=== PATIENT | female | born 1960 | race Caucasian/White ===

== ENCOUNTER → 2016-11-04 | Outpatient (CLI) | payer BC ==
--- NOTE | 2016-11-04 12:30 | RADRPT ---
PROCEDURE: XR Right hip and pelvis. CLINICAL INDICATION: Right hip pain and pelvic pain. TECHNIQUE: 3 views. Frontal pelvis. Frontal and lateral right hip. COMPARISON: None. FINDINGS: There is no fracture or dislocation. The soft tissues are normal. Articular surfaces are intact. There is no lytic or blastic lesion. There is no radiopaque foreign body. IMPRESSION: 1. Unremarkable images of the right hip. 2. Unremarkable frontal view of the pelvis. RPTAT: QQ .Pool Collins MD, Date Time Electronically viewed and signed by .Pool Collins MD, on 11/04/2016 12:30 .R/
== END | disposition home or self-care (01) ==
LOC: HKI 10:41
PROVIDERS: ATTEND Orthopaedic Surgery
DX: M70.61 Trochanteric bursitis, right hip (principal); M25.551 Pain in right hip
CPT/HCPCS: 20610; 73502; G0463; J1030

== ENCOUNTER → 2017-02-24 | Outpatient (CLI) | payer BC ==
--- NOTE | 2017-02-24 17:42 | RADRPT ---
PROCEDURE: XR Left hip and pelvis. CLINICAL INDICATION: Left hip pain and pelvic pain. TECHNIQUE: 3 views. Frontal pelvis. Frontal and lateral left hip. COMPARISON: 11/04/2016. FINDINGS: There is no fracture or dislocation. The soft tissues are normal. Articular surfaces are intact. There is no lytic or blastic lesion. The upper pelvis is not completely included on the images. IMPRESSION: 1. Unremarkable images of the left hip. 2. Unremarkable frontal view of the pelvis. RPTAT: QQ .Pool Collins MD, MD Date Time Electronically viewed and signed by .Pool Collins MD, MD on 02/24/2017 17:42 .R/
== END | disposition home or self-care (01) ==
LOC: HKI 09:11
PROVIDERS: ATTEND Orthopaedic Surgery
DX: M25.551 Pain in right hip (principal); M70.61 Trochanteric bursitis, right hip; M70.62 Trochanteric bursitis, left hip; M25.552 Pain in left hip
CPT/HCPCS: 20610; 73502; G0463; J1030